=== PATIENT | male | born 1960 | race Caucasian/White ===

== ENCOUNTER 2024-08-19 10:05 | Inpatient (IN) | payer OTHER ==
[2024-08-19 10:32] VITALS: BMI 39.9
[2024-08-19] MEDS ORDERED: BISMUTH SUBSALICYLATE 262 MG/15 ML BTL PO PRN (11:03)
[2024-08-19] MEDS ORDERED: MAGNESIUM HYDROX 2400MG/30ML ORAL SUSPENSION 30 ML CUP PO PRN (11:03)
[2024-08-19] MEDS ORDERED: guaiFENesin 600 MG TABLET.ER (FP) PO PRN (11:03)
[2024-08-19] MEDS ORDERED: LOPERAMIDE HCL 2 MG CAPSULE PO PRN (11:03)
[2024-08-19] MEDS ORDERED: DICYCLOMINE HCL 10 MG CAPSULE PO PRN (11:03)
[2024-08-19] MEDS ORDERED: ACETAMINOPHEN 325 MG TABLET (FP) PO PRN (11:03)
[2024-08-19] MEDS ORDERED: IBUPROFEN 400 MG TABLET (FP) PO PRN (11:03)
[2024-08-19] MEDS ORDERED: BENZOCAINE/MENTHOL (CHLORASEPTIC ) LOZENGE MM PRN (11:03)
[2024-08-19] MEDS ORDERED: ONDANSETRON *ODT* 4 MG TABLET SL PRN (11:03)
[2024-08-19] MEDS ORDERED: POLYETHYLENE GLYCOL (HEALTHYLAX) 3350 17 GM PACKET PO PRN (11:03)
[2024-08-19] MEDS ORDERED: BENZONATATE 200 MG CAPSULE PO PRN (11:03)
[2024-08-19] MEDS ORDERED: IBUPROFEN 600 MG TABLET (FP) PO PRN (11:03)
[2024-08-19] MEDS ORDERED: NALOXONE (NARCAN) HCL 4 MG/0.1 ML SPRAY NS PRN (11:03)
[2024-08-19] MEDS: ASPIRIN COATED 81 MG TABLET.EC PO SCH (11:45)
[2024-08-19] MEDS: AMIODARONE HCL 200 MG TABLET PO SCH (14:10)
[2024-08-19] MEDS: THIAMINE 100 MG TABLET PO SCH (22:19)
[2024-08-19] MEDS: MELATONIN 5 MG TABLETS PO SCH (22:19)
[2024-08-19] MEDS: DABIGATRAN ETEXILATE MESYLATE 150 MG CAPSULE PO SCH (22:20)
[2024-08-19] MEDS: ATORVASTATIN CA 20 MG TABLET (FP) PO SCH (22:20)
[2024-08-20] MEDS ORDERED: methaDONE HCL 40 MG DISPERSABLE TABLET PO SCH (06:00)
[2024-08-20] MEDS ORDERED: LORazepam 1 MG TABLET PO PRN (08:31)
[2024-08-20] MEDS: MAG HYDROX/AL HYDROX/SIMETH 30 ML UNIT-DOSE CUP PO PRN (09:06)
[2024-08-20] MEDS: PRENATAL VITAMINS W/ FOLIC ACID TABLET (FP) PO SCH (10:39)
[2024-08-20] MEDS: LORazepam 2 MG TABLET PO SCH (10:40)
[2024-08-20 13:37] LABS: MCH 28.4 pg (25.7-33.7); MCHC 32.3 g/dl (32.0-35.9); MEAN CELL VOLUME 88.1 fl (80-96); MEAN PLT VOLUME 9.1 fl (7.5-11.1); PLATELET COUNT 225 10^3/uL (134-434); RBC 3.86 M/mm3 (4.00-5.60); RDW 14.7 % (11.9-15.9); WHITE BLOOD COUNT 5.7 K/mm3 (4.0-10.0)
[2024-08-20 13:54] LABS: POTASSIUM 4.2 mmol/L (3.5-5.1)
[2024-08-20 13:58] LABS: BLOOD UREA NITROGEN 7.9 mg/dL (7-18); CALCIUM 8.6 mg/dL (8.5-10.1)
[2024-08-20 13:59] LABS: ALBUMIN 2.7 g/dl (3.4-5.0)
[2024-08-20 14:01] LABS: CREATININE 0.9 mg/dL (0.55-1.3)
[2024-08-20 14:02] LABS: BILIRUBIN,TOTAL 0.5 mg/dL (0.2-1)
[2024-08-20 14:03] LABS: TOT PROT 5.8 g/dl (6.4-8.2)
[2024-08-22] MEDS: LORazepam 1 MG TABLET PO SCH (05:45)
[2024-08-22] MEDS: PNEUMOC 20-VAL CONJ-DIP CRM/PF 0.5 ML SYRINGE IM ONE (13:04)
[2024-08-22] MEDS: FLU VACCINE (FLULAVAL) PF 45 MCG/0.5 ML SYRINGE 2024-2025 IM ONE (13:05)
[2024-08-23] MEDS ORDERED: LORazepam 0.5 MG TABLET PO PRN
[2024-08-23] MEDS: LORazepam 0.5 MG TABLET PO SCH (06:00)
[2024-08-23] MEDS: METHOCARBAMOL 500 MG TABLET PO PRN (22:22)
[2024-08-24] MEDS: LORazepam 0.5 MG TABLET PO ONE (05:43)
[2024-08-24 08:39] VITALS: BP 114/79; PULSE 62; RESP 16; TEMP 98.2
== END 2024-08-24 12:10 | disposition home or self-care (01) | DRG 773 ==
LOC: YASAS 10:05 → Y6N 11:22
PROVIDERS: ADMIT Allergy & Immunology; ATTEND Allergy & Immunology
PROC: HZ2ZZZZ Detoxification Services for Substance Abuse Treatment (ICD-10-PCS; principal; 2024-08-19)
DX: F13.230 Sedative, hypnotic or anxiolytic dependence with withdrawal, uncomplicated (principal); F11.10 Opioid abuse, uncomplicated; F31.81 Bipolar II disorder; E78.5 Hyperlipidemia, unspecified; I10 Essential (primary) hypertension; I48.91 Unspecified atrial fibrillation; R26.89 Other abnormalities of gait and mobility; Z87.891 Personal history of nicotine dependence
CPT/HCPCS: 36415; 80053; 80305; 80307; 85027; 86780; 90656; 90677; 93005; 93010; G0008; G0009